=== PATIENT | female | born 1960 | race Caucasian/White ===

== ENCOUNTER 2018-07-25 08:42 | Emergency (ER) | payer OTHER ==
--- NOTE | 2018-07-25 08:48 | EDPHY ---
HPI/HX/ROS/PE/MDM - Data Points Imaging: I viewed and interpreted images myself Narrative: CHIEF COMPLAINT: Chest pain HISTORY OF PRESENT ILLNESS: This patient is a 58 year old female arriving via EMS following two episodes of chest discomfort beginning yesterday. Last night, she was standing in her kitchen and had an episode of sternal chest pain "that literally took my breath away". Immediately after this, she had a sharp tingling sensation down her left arm and felt lightheaded. This lasted about 45 minutes. This morning, she had a similar episode while driving to work with sudden severe pain and associated shortness of breath. This lasted about 25 minutes. Currently, her symptoms have relieved completely. She states she has had palpitations over the past few days. She denies any nausea, diaphoresis, or pain with deep inspiration. She endorses history of GERD but her symptoms today are not at all similar to this. She denies any personal or family history of clotting disorders. No recent prolonged travel. She does not take any estrogen replacements. She is a nonsmoker. She does report some URI/cough symptoms over the past week. She did receive a flu shot this year. No fever, chills, vomiting , diarrhea, urinary complaints, headache. REVIEW OF SYSTEMS: A comprehensive 10 system review of systems is otherwise negative aside from elements mentioned in the history of present illness and medical decision making. 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 Chronic mild left facial paralysis. GERD SOCIAL HISTORY: . Employed. Does not abuse tobacco, drugs, or alcohol. VITAL SIGNS: Reviewed by me GENERAL: Well-developed, well-nourished, resting comfortably in no respiratory distress. HEENT: Atraumatic. Eyes: No icterus, no injection. Mouth: moist mucous membranes. No erythema or lesions. Neck: supple with no adenopathy. LUNGS: Rhonchi left base. CARDIAC: Regular rate and rhythm, no rubs, murmurs or gallops. ABDOMEN: Soft, nontender, nondistended, bowel sounds normal. BACK: No CVA tenderness. EXTREMITIES: No trauma. No edema. Range of motion is normal throughout. NEURO: Alert and oriented, grossly nonfocal. SKIN: Warm and dry, no rash. PSYCHIATRIC: Normal mentation, no agitation. Portions of this note were transcribed by a expert medical writer. I personally performed a history, physical exam, medical decision making, and confirmed accuracy of information the transcribed note. (Alva Ramirez) ED Course: 58 year old female presents following two episodes of chest discomfort with associated shortness of breath and left arm discomfort. Plan for EKG, chest x- ray, labs including CBC, chemistries, troponin, d-dimer. 12-LEAD EKG: Please see the full report in [facility]. My interpretation: Normal sinus rhythm CXR negative for acute processes. D-dimer and troponin are negative. Labs otherwise largely unremarkable. Discussed imaging and laboratory studies with patient. Plan to admit for further evaluation and cardiac workup. The patient is comfortable with this plan. 10:25 Consulted with hospitalist service. Dr. Harman accepts admission for chest pain, left arm pain. HEART SCORE: History: 1 EK Age: 1 Risk Factors: 0 Troponin: 0 Due to the acuity in the hospital, and lack of PCU beds, the patient was in the emergency department for greater than 5 hr. Repeat troponin was negative. Arrangements were made for stress test. (Alva Ramirez) Treadmill stress test reported in [facility] as negative, cardiology opinion is likely noncardiac chest pain. Planned discussed with hospitalist, if they are in agreement then will discharge with outpatient follow-up. Results discussed with the patient at 4: 10 p.m.; she would prefer DC if possible. 1620: Discussed with hospitalist Kimani who was in agreement with discharge and outpatient follow-up after negative stress test and serial troponin. (Greg Spears) MDM: After history and physical examination, the differential for chest pain was considered, including but not limited to, myocardial ischemia, acute coronary syndrome, pulmonary embolus, chest wall pain, pleural inflammation and pulmonary infectious causes. (Alva Ramirez) - Data Points Imaging Results: Imaging Impressions Chest X-Ray 07/25/18 09:00 Impression: Clear lungs. No acute process. Laboratory Results: Laboratory Results 07/25/18 08:40 07/25/18 08:40 07/25/18 07/25/18 07/25/18 08:59 08:40 08:40 WBC RBC Hgb Hct MCV MCH MCHC RDW Plt Count MPV Neut % (Auto) Lymph % (Auto) Grayson % (Auto) Eos % (Auto) Baso % (Auto) Nucleat RBC Rel Count Absolute Neuts (auto) Absolute Lymphs (auto) Absolute Monos (auto) Absolute Eos (auto) Absolute Basos (auto) Absolute Nucleated RBC Immature Gran % Immature Gran # D-Dimer < 0.27 ug/mLFEU ug/mLFEU (0.00-0.50) Sodium 143 mEq/L mEq/L (135-145) Potassium 4.0 mEq/L mEq/L (3.5-5.2) Chloride 108 mEq/L mEq/L (97-110) Carbon Dioxide 24 mEq/l mEq/l (22-31) Anion Gap 11 mEq/L mEq/L (6-14) BUN 12 mg/dL mg/dL (7-23) Creatinine 0.6 mg/dL mg/dL (0.6-1.0) Estimated GFR > 60 Glucose 113 mg/dL H mg/dL (70-100) Calcium 9.4 mg/dL mg/dL (8.5-10.4) POC Troponin I 0.00 ng/mL ng/mL (0.00-0.08) 07/25/18 08:40 WBC 6.69 10^3/uL 10^3/uL (3.80-9.50) RBC 5.04 10^6/uL 10^6/uL (4.18-5.33) Hgb 14.1 g/dL g/dL (12.6-16.3) Hct 42.3 % % (38.0-47.0) MCV 83.9 fL fL (81.5-99.8) MCH 28.0 pg pg (27.9-34.1) MCHC 33.3 g/dL g/dL (32.4-36.7) RDW 12.8 % % (11.5-15.2) Plt Count 219 10^3/uL 10^3/uL (150-400) MPV 9.2 fL fL (8.7-11.7) Neut % (Auto) 50.1 % % (39.3-74.2) Lymph % (Auto) 37.5 % % (15.0-45.0) Grayson % (Auto) 7.6 % % (4.5-13.0) Eos % (Auto) 3.7 % % (0.6-7.6) Baso % (Auto) 0.7 % % (0.3-1.7) Nucleat RBC Rel Count 0.0 % % (0.0-0.2) Absolute Neuts (auto) 3.34 10^3/uL 10^3/uL (1.70-6.50) Absolute Lymphs (auto) 2.51 10^3/uL 10^3/uL (1.00-3.00) Absolute Monos (auto) 0.51 10^3/uL 10^3/uL (0.30-0.80) Absolute Eos (auto) 0.25 10^3/uL 10^3/uL (0.03-0.40) Absolute Basos (auto) 0.05 10^3/uL 10^3/uL (0.02-0.10) Absolute Nucleated RBC 0.00 10^3/uL 10^3/uL (0-0.01) Immature Gran % 0.4 % % (0.0-1.1) Immature Gran # 0.03 10^3/uL 10^3/uL (0.00-0.10) D-Dimer Sodium Potassium Chloride Carbon Dioxide Anion Gap BUN Creatinine Estimated GFR Glucose Calcium POC Troponin I Medications Given: Discontinued Medications Aspirin (Aspirin) 324 mg PO EDNOW ONE Stop: 07/25/18 09:01 Last Admin: 07/25/18 09:06 Dose: Not Given Sodium Chloride (Ns) 500 mls @ 1,000 mls/hr IV EDNOW ONE PRN Reason: Protocol Stop: 07/25/18 09:29 Last Admin: 07/25/18 09:05 Dose: 500 mls Point of Care Test Results: Chemistry 07/25/18 08:59 POC Troponin I 0.00 ng/mL ng/mL (0.00-0.08) General Time Seen by Provider: 07/25/18 08:42 Initial Vital Signs: Initial Vital Signs Temperature (C) 36.7 C 07/25/18 08:45 Heart Rate 81 07/25/18 08:45 Respiratory Rate 16 07/25/18 08:45 Blood Pressure 177/111 H 07/25/18 08:45 O2 Sat (%) 98 07/25/18 08:45 O2 Delivery Mode Room Air Allergies/Adverse Reactions: Penicillins Allergy (Verified 07/25/18 10:48) Hives Home Medications: Medication Instructions Recorded Desvenlafaxine Succinate [Pristiq 25 mg PO DAILY 07/25/18 ER] Esomeprazole Magnesium [Nexium] 20 mg PO DAILY 07/25/18 Herbals/Supplements -Info Only 1 each PO DAILY 07/25/18 Levothyroxine [Synthroid 25 mcg 25 mcg PO DAILY06 07/25/18 (*)] Multivitamins [Multivitamin (*)] 1 each PO DAILY 07/25/18 Pentosan Polysulfate Sodium 100 mg PO DAILY 07/25/18 [Elmiron] Rosuvastatin Calcium [Crestor 10mg 10 mg PO HS 07/25/18 (RX)] Departure - Departure Disposition: Home, Routine, Self-Care Clinical Impression: Chest pain Qualifiers: Chest pain type: other chest pain Qualified Code(s): R07.89 - Other chest pain Arm pain Qualifiers: Laterality: left Qualified Code(s): M79.602 - Pain in left arm Condition: Good Report Scribed for: Alva Ramirez Report Scribed by: Leela Jama Date of Report: 07/25/18 Time of Report: 08:48
[2018-07-25] MEDS ORDERED: ASPIRIN 81 MG CHEWABLE TAB PO ONE (09:00)
[2018-07-25] MEDS ORDERED: NS 500 ML IV ONE (09:00)
[2018-07-25 09:09] LABS: PLATELET COUNT 219 10^3/uL (150-400)
[2018-07-25] MEDS ORDERED: ZOLPIDEM TARTRATE 5 MG TAB PO PRN (11:00)
[2018-07-25] MEDS ORDERED: ACETAMINOPHEN 325 MG TAB PO PRN (11:00)
[2018-07-25] MEDS ORDERED: ONDANSETRON 4 MG/2 ML VIAL IVP PRN (11:00)
--- NOTE | 2018-07-25 15:51 | PDGENHP ---
History and Physical History and Physical: CC: Chest pain HISTORY: ROS: A comprehensive 10 system review revealed no other significant findings PAST MEDICAL HISTORY: Interstitial cystitis Hypothyroidism Dyspepsia FAMILY MEDICAL HISTORY: Hypertension Lung cancer Breast cancer SOCIAL HISTORY: Former smoker Works as a teacher MEDICATIONS: The patients list has been reconciled by our clinical pharmacist in the EMR. I have reviewed the list and ordered appropriate medicines. PHYSICAL EXAMINATION: Vital Signs: Some hypertension present at the time of presentation to the ER which has resolved spontaneously otherwise normal without fever Microfilming Document Preparer: Sinus Examination: General: alert, oriented, good mentation, relaxed Skin: warm, dry, good color, no rash HEENT: normal Neck: no mass or jvd Resps: relaxed Lungs: clear breath sounds Heart: regular, no murmur Abdomen: soft, nondistended, nontender, +BS, no mass Upper Extremities: normal Lower Extremities: no edema, warm No Bleeding or bruising Neurologic: normal speech/language, normal it business analyst, no focal weakness IV site: looks normal LABORATORY DATA: 2 troponins are normal RADIOLOGY STUDIES: I reviewed images of two view chest x-ray done in the ER, which is normal chest x-ray 12 LEAD EKG: I reviewed 12 lead EKG tracing which shows sinus rhythm without any ischemic changes or other abnormalities ASSESSMENT: * chest pain PLANS: I have reviewed the patient's case in detail with . I have reviewed the patient's past medical records as part of this assessment, including outpatient clinic records
--- NOTE | 2018-07-25 15:55 | PDCARST ---
CAR Stress Test Results Type of Stress Test: TM stress test Indication: cp Description of Procedure: Stress test template: After informed consent was obtained, pt was exercised according to Jose Protocol. Monitoring was performed with standard stress boat tester electrode placement. Vital signs were monitored according to protocol throughout the procedure. STRESS EKG AND HEMODYNAMIC DATA. Exercise time: 10 min. This is equivalent to: 10.7 METS. Resting heart rate: 67 bpm. Resting blood pressure: 120/80 mmHg. Resting O2 saturation: 96 %. Peak heart rate: 160 bpm. This is 98 % of age predicted maximum heart rate response. Peak blood pressure: 180/80 mmHg. Exercise O2: 96 %. Arrhythmias: None. Reason for termination: The test was stopped due to maximal effort. Symptoms: The patient experienced no typical symptoms of angina during stress or recovery. STRESS TEST ANALYSIS. Baseline ECG: SR. Stress ECG: sinus tach. No exercise induced ischemic ECG changes. Rhythm: No arrhythmias noted during exercise and recovery. Blood pressure: Haley blood pressure response to exercise. Exercise tolerance: The patient has normal exercise tolerance adjusted for age and gender. Symptoms: No exercise induced symptoms. Impression: DTS: +10 (low risk) Conclusion: Likely noncardiac cp.
--- NOTE | 2018-07-25 16:25 | CPEKG ---
Test Reason : OPEN Blood Pressure : / mmHG Vent. Rate : 070 BPM Atrial Rate : 070 BPM P-R Int : 144 ms QRS Dur : 085 ms QT Int : 410 ms P-R-T Axes : 042 047 048 degrees QTc Int : 443 ms Sinus rhythm Confirmed by Greg Spears ([id number]) on 07/25/2018 4:25:16 PM Referred By: Confirmed By:Greg Spears
[2018-07-25 16:34] VITALS: BP 138/100
[2018-07-25] MEDS ORDERED: MELATONIN 3 MG TAB PO SCH (21:00)
== END 2018-07-25 16:34 | disposition home or self-care (01) ==
LOC: EDUNIT# → UNDOADMOB 10:28
DX: R07.9 Chest pain, unspecified (principal); M79.602 Pain in left arm; E86.9 Volume depletion, unspecified
CPT/HCPCS: 84484-ER